=== PATIENT | male | born 1960 | race African-American/Black ===

== ENCOUNTER 2023-02-10 02:25 | Emergency (ER) | payer OTHER ==
[~2023-02-10] VITALS: Ht 172.7 cm; Wt 77.0 kg
[2023-02-10 02:27] VITALS: BP 136/87
== END 2023-02-10 04:57 | disposition left against medical advice (07) ==
LOC: ER 02:25
DX: Z53.21 Procedure and treatment not carried out due to patient leaving prior to being seen by health care provider (principal)
CPT/HCPCS: 99281

== ENCOUNTER 2023-08-16 16:05 | Emergency (ER) | payer MEDICAID, OTHER ==
[~2023-08-16] VITALS: Ht 170.2 cm; Wt 77.0 kg
[2023-08-16 16:18] VITALS: BP 176/92; PULSE 123; RESP 16; TEMP 97.4; O2SAT 99
[2023-08-16 17:23] LABS: CLARITY URINE CLEAR (CLEAR); COLOR URINE YELLOW (YELLOW); PROTEIN URINE NEGATIVE (NEGATIVE); SPECIFIC GRAVITY URINE <=1.005 (1.005-1.030)
[2023-08-16 17:24] LABS: GLUCOSE URINE 3+ (NEGATIVE); KETONES URINE TRACE (NEGATIVE)
[2023-08-16 17:28] LABS: LEUKOCYTE ESTERASE URINE NEGATIVE (NEGATIVE); NITRITE URINE NEGATIVE (NEGATIVE); OCCULT BLOOD URINE TRACE (NEGATIVE); UROBILINOGEN URINE 0.2 E.U./dL (0.2-1.0)
[2023-08-16 17:33] LABS: BACTERIA URINE 1+; SQUAMOUS EPITHELIAL CELL URINE RARE /lpf (RARE/1+)
[2023-08-16 17:34] LABS: RBC URINE 0-2 /hpf (0-2); WBC URINE 0-2 /hpf (0-2)
== END 2023-08-16 18:25 | disposition left against medical advice (07) ==
LOC: ER 16:05
DX: R10.9 Unspecified abdominal pain (principal); E11.9 Type 2 diabetes mellitus without complications; I10 Essential (primary) hypertension
CPT/HCPCS: 81003; 99283

== ENCOUNTER 2023-09-27 05:44 | Emergency (ER) | payer MEDICAID ==
[~2023-09-27] VITALS: Ht 177.8 cm; Wt 79.0 kg
[2023-09-27 06:04] VITALS: BP 138/82; PULSE 96; RESP 16; TEMP 97.6; O2SAT 99
== END 2023-09-27 11:55 | disposition home or self-care (01) ==
LOC: ER 05:57
DX: T83.098A Other mechanical complication of other urinary catheter, initial encounter (principal); R33.9 Retention of urine, unspecified; X58.XXXA Exposure to other specified factors, initial encounter; E11.9 Type 2 diabetes mellitus without complications; I10 Essential (primary) hypertension
CPT/HCPCS: 99283

== ENCOUNTER 2023-12-19 05:59 | Emergency (ER) | payer MEDICAID ==
[~2023-12-19] VITALS: Ht 165.1 cm; Wt 64.0 kg
[2023-12-19 06:08] VITALS: TEMP 98; O2SAT 100
[2023-12-19 08:51] VITALS: BP 110/64; PULSE 80; RESP 18
== END 2023-12-19 09:15 | disposition home or self-care (01) ==
LOC: ER 05:59
DX: T83.018A Breakdown (mechanical) of other urinary catheter, initial encounter (principal); E11.9 Type 2 diabetes mellitus without complications; Y82.8 Other medical devices associated with adverse incidents
CPT/HCPCS: 51702; 99284

== ENCOUNTER 2024-03-22 12:52 | Emergency (ER) | payer MEDICAID ==
[~2024-03-22] VITALS: Ht 167.6 cm; Wt 70.0 kg
[~2024-03-22 12:52] MED LIST: ATOR40TA70 PO; DULO30CA52 PO; FINA5TAB11 PO; INSLIS SUBCUT; INSU100I28 SQ; METF-415 PO
[2024-03-22 13:00] VITALS: O2SAT 99
[2024-03-22 15:07] LABS: CLARITY URINE CLOUDY (CLEAR); COLOR URINE YELLOW (YELLOW); GLUCOSE URINE 3+ (NEGATIVE); KETONES URINE 1+ (NEGATIVE); LEUKOCYTE ESTERASE URINE 2+ (NEGATIVE); NITRITE URINE NEGATIVE (NEGATIVE); OCCULT BLOOD URINE 1+ (NEGATIVE); PROTEIN URINE NEGATIVE (NEGATIVE); SPECIFIC GRAVITY URINE 1.031 (1.005-1.030); UROBILINOGEN URINE 0.2 E.U./dL (0.2-1.0)
[2024-03-22 15:26] LABS: BACTERIA URINE 1+; SQUAMOUS EPITHELIAL CELL URINE 1+ /lpf (RARE/1+)
[2024-03-22] MEDS ORDERED: CEFP100T8 MT (15:36)
[2024-03-22 16:01] VITALS: BP 144/83; PULSE 88; RESP 15; TEMP 98.5
[2024-03-22] MEDS: LIDOCAINE HCL 1% 20ML VIAL INFIL ONE (16:01)
[2024-03-22] MEDS: CEFTRIAXONE SODIUM 1G VIAL IM ONE (16:01)
== END 2024-03-22 16:35 | disposition short-term general hospital (02) ==
LOC: ER 14:03
DX: N39.0 Urinary tract infection, site not specified (principal); E11.9 Type 2 diabetes mellitus without complications; Z46.6 Encounter for fitting and adjustment of urinary device; Z79.899 Other long term (current) drug therapy
CPT/HCPCS: 99285; 81003; 96372; J0696; J3490

== ENCOUNTER 2024-04-04 11:25 | Emergency (ER) | payer MEDICAID ==
[~2024-04-04] VITALS: Ht 175.3 cm; Wt 70.0 kg
[~2024-04-04 11:25] MED LIST changes: +CEFP100T8 MT
[2024-04-04 11:29] VITALS: O2SAT 98
[2024-04-04] MEDS: INSULIN REGULAR (HUMULIN R) 1000UNITS/10ML VIAL SUBCUT NR (12:45)
[2024-04-04 12:46] LABS: CLARITY URINE CLEAR (CLEAR); COLOR URINE YELLOW (YELLOW); GLUCOSE URINE 3+ (NEGATIVE); KETONES URINE NEGATIVE (NEGATIVE); LEUKOCYTE ESTERASE URINE NEGATIVE (NEGATIVE); NITRITE URINE NEGATIVE (NEGATIVE); OCCULT BLOOD URINE 1+ (NEGATIVE); PROTEIN URINE NEGATIVE (NEGATIVE); SPECIFIC GRAVITY URINE 1.029 (1.005-1.030); UROBILINOGEN URINE 0.2 E.U./dL (0.2-1.0)
[2024-04-04] MEDS: SODIUM CHLORIDE 0.9% 1,000 ML IV ONE ×2 (13:06→14:16)
[2024-04-04 13:08] LABS: BASOPHILS % 0.9 % (0.0-2.0); EOSINOPHILS % 2.7 % (0.0-5.0); HEMOGLOBIN. 12.9 g/dL (14.0-18.0); LYMPHOCYTES % 27.6 % (20.0-50.0); MEAN CORPUSCULAR HEMOGLOBIN 30.3 pg (28.0-32.0); MEAN CORPUSCULAR VOLUME 91.8 fL (80.0-94.0); MEAN PLATELET VOLUME 7.5 fl (7.4-10.4); MONOCYTES % 8.6 % (2.0-8.0); NEUTROPHILS % 60.2 % (40.0-76.0); PLATELET 303 x1000/uL (130-400); RED BLOOD CELL COUNT 4.25 mill/uL (4.7-6.1); RED CELL DISTRIBUTION WIDTH 13.4 % (11.6-14.6); WHITE BLOOD COUNT 4.2 x1000/uL (4.5-11.0)
[2024-04-04 13:14] LABS: SQUAMOUS EPITHELIAL CELL URINE NONE SEEN /lpf (RARE/1+)
[2024-04-04 13:15] LABS: BACTERIA URINE 1+
[2024-04-04 13:17] LABS: CARBON DIOXIDE 28 mEq/L (21-32); CHLORIDE 99 mEq/L (98-107); POTASSIUM 4.8 mEq/L (3.5-5.1); SODIUM 132 mEq/L (136-145)
[2024-04-04 13:18] LABS: CALCIUM 9.6 mg/dL (8.7-10.4)
[2024-04-04 13:22] LABS: CREATININE 1.1 mg/dL (0.6-1.3)
[2024-04-04 13:23] LABS: TROPONIN I HIGH SENSITIVITY 4 ng/L (3.0-53); UREA NITROGEN BLOOD 21 mg/dL (9-23)
[2024-04-04 13:24] LABS: ALANINE AMINOTRANSFERASE 20 IU/L (10-49); ALBUMIN 4.2 g/dL (3.2-4.8); ASPARTATE AMINOTRANSFERASE 17 IU/L (<34)
[2024-04-04 13:25] LABS: BILIRUBIN DIRECT 0.2 mg/dL (<=3.0); BILIRUBIN TOTAL 0.7 mg/dL (0.1-1.0); PROTEIN TOTAL 6.8 g/dL (6.0-8.3)
[2024-04-04 13:40] LABS: GLUCOSE 672 mg/dL (70-105)
[2024-04-04 14:02] LABS: BETA HYDROXYBUTYRATE 0.7 mMol/L (0.0-0.3)
[2024-04-04 14:19] LABS: BG BASE EXCESS -3.1 mmol/L (-2.0-2.0); BG CARBOXYHEMOGLOBIN 1.1 % (0.5-1.5); BG DEOXYHEMOGLOBIN 2.9 % (0.0-5.0); BG FRACTION INSPIRED OXYGEN 21; BG HCO3 ACT 22.2 mmol/L (22.0-26.0); BG METHEMOGLOBIN 0.3 % (0.0-1.5); BG OXYGEN SATURATION 97.1 % (92.0-98.5); BG OXYHEMOGLOBIN 95.7 % (94.0-97.0); BG PCO2 40.3 mmHg (35.0-45.0); BG PH 7.358 (7.350-7.450); BG PO2 97.4 mmHg (75.0-100.0); BG SAMPLE SITE RIGHT BRACHIAL; BG TOTAL HEMOGLOBIN 13.2 g/dL (12.0-18.0); BG VENT MODE ROOM AIR
[2024-04-04 16:36] VITALS: BP 112/62; PULSE 68; RESP 20; TEMP 98
== END 2024-04-04 16:37 | disposition home or self-care (01) ==
LOC: ER 11:45
DX: Z46.6 Encounter for fitting and adjustment of urinary device (principal); E11.9 Type 2 diabetes mellitus without complications; I10 Essential (primary) hypertension
CPT/HCPCS: 80076; 80048; 81003; 82010; 82962; 85025; 84484; 36415; 82805; 82375; 96360; 96361; 96372; 99283; 36600; J1815; Z7610